=== PATIENT | female | born 2000 | race Caucasian/White ===

== ENCOUNTER 2024-05-22 02:19 | Emergency (ER) | payer BC ==
[2024-05-22] MEDS: LORazepam 1 MG Tab PO ONE (03:00)
== END 2024-05-22 04:09 | disposition home or self-care (01) ==
LOC: JP.ED 02:19
DX: F41.0 Panic disorder [episodic paroxysmal anxiety] (principal); Z79.899 Other long term (current) drug therapy
CPT/HCPCS: 99284; A9270